=== PATIENT | female | born 1995 | race Caucasian/White ===

== ENCOUNTER 2019-05-28 11:43 | Inpatient (IN) ==
[~2019-05-28 11:43] MED LIST: *HR* Nalbuphine 10 MG/ML AMPUL IVP PRN; Famotidine 20 MG/2 ML VIAL IVP PRN; Lidocaine 1% 20 ML MDV INFILT PRN; Metoclopramide 10 MG/2 ML VIAL IVP PRN; Naloxone 0.4 MG/ML INJ IVP PRN; Ondansetron 4 MG/2 ML VIAL IVP PRN
[2019-05-28] MEDS ORDERED: Ringers Solution, Lactated 1,000 ML IVC SCH (11:45)
[2019-05-28 12:09] LABS: Eosinophils % 0.2 %; Hematocrit 38.3 % (35.3-44.9); Hemoglobin 12.7 g/dL (11.5-15.4); Immature Granulocytes % 0.9 % (0-4); Lymphocytes % 15.7 %; Mean Corpuscular HGB Conc 33.2 g/dL (31.6-35.5); Mean Corpuscular Hemoglobin 28.3 pg (28.0-33.3); Mean Corpuscular Volume 85.3 fL (83.0-100.0); Mean Platelet Volume 9.4 fL (9.4-12.4); Monocytes % 5.6 %; Platelet Count 245 K/mcL (140-400); Red Blood Count 4.49 M/mcL (3.82-4.97); Red Cell Distribution Width 13.7 % (11.5-14.5); Segmented Neutrophils % 77.4 %; White Blood Count 8.2 K/mcL (4.3-11.1)
[2019-05-28 12:10] LABS: Basophils % 0.2 %; Lymphocytes # 1.3 K/mcL (0.6-4.6); Monocytes # 0.5 K/mcL (0.0-1.3); Neutrophils # 6.3 K/mcL (1.6-8.9)
[2019-05-28 12:18] LABS: Amphetamine Screen,Urine Negative ng/mL (Cutoff=1000); Barbiturate Screen,Urine Negative ng/mL (Cutoff=200); Benzodiazepines Screen,Urine Negative ng/mL (Cutoff=200); Cannabinoid Screen,Urine Negative ng/mL (Cutoff = 50); Cocaine Screen,Urine Negative ng/mL (Cutoff= 300); Opiate Screen,Urine Negative ng/mL (Cutoff=300); Phencyclidine Screen,Urine Negative ng/mL (Cutoff=25)
--- NOTE | 2019-05-28 12:26 | OB/GYN History & Physical ---
Date of Encounter: 05/28/19 Time of Encounter: 12:17 Assessment and Plan (1) 40 weeks gestation of Current visit: Yes Status: Acute Admit to L&D for observation of labor Expectant management Labs-CBC and type and screen Intermittent auscultation Pain management plan is natural childbirth Anticipate vaginal delivery Dr. Preston is the OB on-call and is available as needed (2) Intrauterine Current visit: Yes Status: Acute (3) Active labor at term Current visit: Yes Status: Acute (4) Type O blood, Rh negative Current visit: Yes Status: Acute Cord blood will be collected at time of delivery (5) Intact amniotic membranes during in third trimester Current visit: Yes Status: Acute History of Present Illness Chief complaint: contractions HPI: Ms. Parson is a 23 year old female at 40 weeks 1 days gestation with an estimated date of 05/27/19 dated by LMP. She presents with complaint of contractions since 0 400 this morning increasing in strength and fr equency. She endorses good movement and denies leakage of fluid and vaginal bleeding. Her has been uncomplicated. She is been followed by the midwives throughout her . records are available electronically and have been reviewed. Labs: O- GBS- HIV- Hep B- T. Palladium- GC/CL- Rubella immune Varicella immune Obstetrical History - Pregnancies : 1 Para: 0 Term: 0 : 0 Ab's: 0 Livin Review of System OB All systems PM: reviewed and no additional remarkable complaints except as stated Exam - Constitutional Constitutional: well developed, well nourished, average body habitus, mild distress - HEENT HEENT: PERRL, Normocephaly, Mucus Membranes Moist - Neck Neck exam: full ROM - Lungs Respiratory exam: CTAB - Cardiovascular Cardiovascular exam: RRR, +S1, +S2 - Breasts Breast: bilateral: normal - Abdomen Abdomen: Present: bowel sounds normal, gravid, non tender - Extremities Extremities exam: full ROM, normal capillary refill, normal inspection, radial pulses palpable and symmetrical Deep Tendon Reflex Grade: 2+ Normal - Vulva Vulva: bilateral: normal - Vagina Vagina: Present: normal moisture - Cervix Dilation: 4 (per RN) Effacement: 100 Station: -2 - Uterus Uterus exam: Present: enlarged, normal contour - Adnexa Adnexa: bilateral: normal - Anus/Rectum Anus/Rectum: Present: normal perianal skin Results Result Diagrams: 05/28/19 11:56 All other labs normal. - VTE Reasons for not Prescribing Prophylaxis: Treatment not Indicated - Low risk for VTE
--- NOTE | 2019-05-28 14:43 | OB Labor Progress Note ---
Date of Encounter: 05/28/19 Time of Encounter: 14:41 Labor Progress Note - Subjective Subjective: Patient reports lots of pressure with contractions but is managing them well. Requesting Nubain for pain relief - Cervix Cervix: 6-7/100/0 - Heart Tones Heart Tones: Intermittent auscultation with heart tones reassuring. Range from 125-145 bpm - [place]: Ms Sql Server Developer at bedside for labor support. Contractions timed at 3 minutes apart and palpated strong - Interventions Interventions: SVE Nubain - Plan Physician notified: No Plan: Continue expectant management Nubain for pain relief Continuous electronic monitoring Anticipate vaginal delivery
[2019-05-28] MEDS ORDERED: Oxytocin 20 units/ LR 1000 mL 20 UNIT/1,000 ML BAG IVC ONE (15:06)
[2019-05-28] MEDS ORDERED: Methylergonovine 0.2 MG/ML AMPUL IM ONE (17:34)
--- NOTE | 2019-05-28 17:59 | OB/GYN Procedure Note ---
Delivery - Delivery Date: 05/28/19 Provider: China Kim Intrapartum events: none Delivery induction: none Delivery monitor: external FHT, external uterine Anesthesia: local (10mL for repair) Quantitated Blood Loss: 250 - Infant (s) A Infant Delivery Date: 05/28/19 Delivery Time: 17:10 Presentation: vertex Position: JUAN CARLOS Route of delivery: Gender: Male Viability: Viable Pounds: 7 Ounces: 11 Weight Gram: 3.51 kg at 1 minute: 8 at 5 mins: 9 Shoulder Dystocia: not encountered Specimens collected: cord blood Placenta: spontaneous Cord: nuchal cord (loose), 3 umbilical vessels, delivered through nuchal - Repair Episiotomy: none Laceration Description: Perineal - 2nd Degree (repaired) - Complications Delivery complications: uterine atony (methergine given IM) Delivery comments: This is a 23 year old G 1 now P 1001 who was admitted for spontaneous labor. She progressed spontaneously to the second stage of labor. She pushed for about an hour and 10 minutes. She delivered a viable, male , Tani RANGEL", over a second-degree laceration. A nuchal cord was identified. The cord was loose and may have been reduced however the infant's body was delivering so the cord was delivered through. A shoulder dystocia was not encountered. The infant was placed on the maternal abdomen and allowed to transition spontaneously. The cord was double clamped by [employer] after pulsations ceased and cut by [employer]. scores were 8 at 1 minute and 9 at 5 minutes. The infant weighed 7 lbs. 11 oz. (3510 g). The placented delivered spontaneously, intact ([place]) with a 3-ves stephen cord. Inspection revealed a second-degree laceration. The laceration was repaired with a 3-0 Vicryl suture and was hemostatic. The uterus was atonic with active bleeding. Methergine was administered per RN and Dr. Preston was called to bedside. However upon his arrival bleeding had slowed. EBL was 250 mL. Placenta and umbilical artery blood gases were not sent. There were no complications during the procedure. Mom and baby are skin to skin following delivery. - Disposition Mom disposition: stable in LDR disposition: stable in LDR
[2019-05-28] MEDS ORDERED: Oxytocin 20 units/ LR 1000 mL 20 UNIT/1,000 ML BAG IVC SCH (20:27)
[2019-05-28] MEDS ORDERED: Acetaminophen 325 MG TABLET PO PRN (20:27)
[2019-05-28] MEDS ORDERED: Rho Immune Globulin 1,500 UNIT SYRINGE IM PRN (20:27)
[2019-05-28] MEDS: Ibuprofen 600 MG TABLET PO PRN (20:48)
[2019-05-28] MEDS ORDERED: Benzocaine/Menthol 56 GM AEROSOL SPRAY TP PRN (21:49)
[2019-05-29] MEDS: Ibuprofen 600 MG TABLET PO PRN (07:57)
--- NOTE | 2019-05-29 08:20 | Discharge Summary ---
Date of Encounter: 05/29/19 Time of Encounter: 08:16 - Discharge Diagnosis (1) Vaginal delivery Priority: Primary Status: Acute Comments: S/P Vaginal delivery Day 1 Pain is well controlled Lochia is light and without clots VSS Tolerating regular diet and passing flatus Voiding without difficulty Discharge home today POC per consult with Dr Menchaca - Discharge Medications Prescriptions: New Breast Pump [BREAST PUMP] 1 each .ROUTE AD #1 each Docusate [Colace] 100 mg PO BID PRN #30 capsule PRN Reason: Consitipation Benzocaine/Menthol Dolphin [Dermoplast Dolphin] 1 appl TP QID PRN aerosol PRN Reason: See Comments Ibuprofen [Motrin] 600 mg PO Q6HR PRN #30 tablet PRN Reason: Cramping Acetaminophen [Tylenol] 650 mg PO Q6HR PRN tablet PRN Reason: Mild Pain Continued Pnv No.95/Ferrous Fum/Folic AC [ Caplet] 1 each PO DAILY Home Medications: Pnv No.95/Ferrous Fum/Folic AC [ Caplet] 1 each PO DAILY 05/28/19 [History] Acetaminophen [Tylenol] 650 mg PO Q6HR PRN tablet 05/29/19 [Rx] Benzocaine/Menthol Dolphin [Dermoplast Dolphin] 1 appl TP QID PRN aerosol 05/29/19 [Rx] Breast Pump [BREAST PUMP] 1 each .ROUTE AD #1 each 05/29/19 [Rx] Docusate [Colace] 100 mg PO BID PRN #30 capsule 05/29/19 [Rx] Ibuprofen [Motrin] 600 mg PO Q6HR PRN #30 tablet 05/29/19 [Rx] Allergies/Adverse Reactions: Allergy/AdvReac Type Severity Reaction Status Date / Time No Known Allergies Allergy Verified 05/28/19 12:35 Data Procedures and tests throughout hospitalization: Laboratory Tests 05/28/19 05/28/19 11:56 11:56 WBC 8.2 RBC 4.49 Hgb 12.7 Hct 38.3 MCV 85.3 MCH 28.3 MCHC 33.2 RDW 13.7 Plt Count 245 MPV 9.4 Immature Gran % 0.9 Seg Neutrophils % 77.4 Lymphocytes % 15.7 Monocytes % 5.6 Eosinophils % 0.2 Basophils % 0.2 Neutrophils # 6.3 Lymphocytes # 1.3 Monocytes # 0.5 Eosinophils # 0.0 Basophils # 0.0 Urine Opiates Screen Negative Ur Buprenorphine Scrn Negative Ur Barbiturates Screen Negative Ur Phencyclidine Scrn Negative Ur Amphetamines Screen Negative U Benzodiazepines Scrn Negative Urine Cocaine Screen Negative U Marijuana (THC) Screen Negative Ur Drug Screen Interp See Below Labs on day of discharge: Labs from last 24 hours 05/28/19 05/28/19 11:56 11:56 WBC 8.2 RBC 4.49 Hgb 12.7 Hct 38.3 MCV 85.3 MCH 28.3 MCHC 33.2 RDW 13.7 Plt Count 245 MPV 9.4 Immature Gran % 0.9 Seg Neutrophils % 77.4 Lymphocytes % 15.7 Monocytes % 5.6 Eosinophils % 0.2 Basophils % 0.2 Neutrophils # 6.3 Lymphocytes # 1.3 Monocytes # 0.5 Eosinophils # 0.0 Basophils # 0.0 Urine Opiates Screen Negative Ur Buprenorphine Scrn Negative Ur Barbiturates Screen Negative Ur Phencyclidine Scrn Negative Ur Amphetamines Screen Negative U Benzodiazepines Scrn Negative Urine Cocaine Screen Negative U Marijuana (THC) Screen Negative Ur Drug Screen Interp See Below Date of admission: 05/28/19 11:43 Consults: 05/28/19 20:27 Consult to Sleeping Car Conductor [CONS] Routine Comment: Vaginal delivery, consult needed Discharging clinician: China Mackay Anticipated date of discharge: 05/29/19 - Patient Status Disposition: Home, Self-Care Condition: Good Functional capacity at discharge: independent ambulation Overall status at discharge: patient is progressing back to baseline - Discharge Instructions Follow Up With: China Kim [Advanced Practice Nurse] - - Diet and Activity Activity: increase activity as tolerated Diet: regular diet Hospital Course Reason for admission: active labor, IUP at term Delivery: Episiotomy: none Laceration: 2nd degree Other procedures: none complications: none Discharge diagnosis: IUP at term delivered baby: male Time Attestation: Total time spent providing and/or coordinating discharge services: Time Spent: Less than 30 minutes Exam - Constitutional Vitals: Temp Pulse Resp BP Pulse Ox 98.2 F 75 14 113/65 99 05/29/19 03:27 05/29/19 03:27 05/29/19 03:27 05/29/19 03:27 05/29/19 03:27 General appearance IM: cooperative, A&O X 3, pleasant - Respiratory Respiratory exam: Present: CTAB - Cardiovascular Cardiovascular exam IM: Present: RRR, +S1, +S2 - GI/Abdominal GI/Abdominal exam IM: normal bowel sounds - Rectal Rectal exam: deferred - Uterine Tone: Firm Uterus Position: At Umbilicus, Midline - Neurological Exam Neurological exam: alert, oriented X3, reflexes normal
[2019-05-29 08:42] VITALS: BP 114/76
[2019-05-29] MEDS ORDERED: Prenatal Vit/FA 1 EACH TABLET PO SCH (09:00)
== END 2019-05-29 16:58 | disposition home or self-care (01) | DRG 807 ==
LOC: 1NENULAB → 1NENUOBS 20:43
PROVIDERS: ADMIT Advanced Practice Midwife; ATTEND Advanced Practice Midwife

== ENCOUNTER 2021-12-18 09:15 | Observation (INO) ==
[2021-12-18 09:54] LABS: Basophils % 0.2 %; Eosinophils % 0.5 %; Hematocrit 36.6 % (35.3-44.9); Hemoglobin 12.4 g/dL (11.5-15.4); Immature Granulocytes % 1.3 % (0-4); Lymphocytes # 1.3 K/mcL (0.6-4.6); Lymphocytes % 22.6 %; Mean Corpuscular HGB Conc 33.9 g/dL (31.6-35.5); Mean Corpuscular Volume 88.4 fL (83.0-100.0); Mean Platelet Volume 9.1 fL (9.4-12.4); Monocytes # 0.3 K/mcL (0.0-1.3); Monocytes % 5.2 %; Neutrophils # 3.9 K/mcL (1.6-8.9); Platelet Count 205 K/mcL (140-400); Red Blood Count 4.14 M/mcL (3.82-4.97); Red Cell Distribution Width 13.1 % (11.5-14.5); Segmented Neutrophils % 70.2 %; White Blood Count 5.5 K/mcL (4.3-11.1)
[2021-12-18 10:02] LABS: Prothrombin Time 11.1 Seconds (9.4-12.1)
[2021-12-18] MEDS: Betamethasone Acet/SodPhos 30 MG/5 ML VIAL IM SCH (11:36)
[2021-12-19] MEDS: Betamethasone Acet/SodPhos 30 MG/5 ML VIAL IM SCH (11:20)
== END 2021-12-19 11:28 | disposition home or self-care (01) ==
LOC: 1NENULAB
PROVIDERS: ADMIT Advanced Practice Midwife; ATTEND Advanced Practice Midwife

== ENCOUNTER 2021-12-20 02:03 | Observation (INO) ==
[2021-12-20 02:57] LABS: Prothrombin Time 10.6 Seconds (9.4-12.1)
[2021-12-20 02:58] LABS: Activated Partial Thrombo Time 26.9 Seconds (26.0-36.0)
[2021-12-20 03:52] LABS: Basophils % 0.1 %; Hemoglobin 11.6 g/dL (11.5-15.4); Immature Granulocytes % 1.6 % (0-4); Lymphocytes % 10.8 %; Mean Corpuscular HGB Conc 34.1 g/dL (31.6-35.5); Mean Corpuscular Hemoglobin 29.5 pg (28.0-33.3); Mean Corpuscular Volume 86.5 fL (83.0-100.0); Mean Platelet Volume 9.2 fL (9.4-12.4); Monocytes # 0.3 K/mcL (0.0-1.3); Monocytes % 3.3 %; Neutrophils # 7.8 K/mcL (1.6-8.9); Platelet Count 220 K/mcL (140-400); Red Blood Count 3.93 M/mcL (3.82-4.97); Red Cell Distribution Width 13.2 % (11.5-14.5); Segmented Neutrophils % 84.2 %
[2021-12-20 03:54] LABS: White Blood Count 9.3 K/mcL (4.3-11.1)
== END 2021-12-20 10:30 | disposition left against medical advice (07) ==
LOC: 1NENULAB
PROVIDERS: ADMIT Advanced Practice Midwife; ATTEND Advanced Practice Midwife

== ENCOUNTER → 2022-01-04 09:00 | Observation (INO) ==
[2022-01-03] MEDS: Ringers Solution, Lactated 1,000 ML IVC SCH (19:30)
[2022-01-03 23:04] LABS: Bacteria,Urine Few per hpf (None-Few); Bilirubin,Urine Negative (Negative); Blood,Urine Large (Negative); Clarity,Urine Clear (Clear); Color,Urine Colorless (Yellow); Glucose,Urine (UA) Normal (Normal); Ketones,Urine Negative (Negative); Leukocyte Esterase,Urine Small (Negative); Nitrite,Urine Negative (Negative); Protein,Urine Negative (Neg-Trace); RBC,Urine 0-3 per hpf (0-3); Specific Gravity,Urine 1.005 (1.010-1.025); Squamous Epithelial Cell,Urine Few per hpf (None-Few); Urobilinogen,Urine Normal (Normal); WBC,Urine 0-3 per hpf (0-3)
[2022-01-04] MEDS: Ringers Solution, Lactated 1,000 ML IVC SCH (02:43)
[~2022-01-04 09:00] MED LIST changes: -*HR* Nalbuphine 10 MG/ML AMPUL IVP PRN; -Famotidine 20 MG/2 ML VIAL IVP PRN; -Lidocaine 1% 20 ML MDV INFILT PRN; -Metoclopramide 10 MG/2 ML VIAL IVP PRN; -Naloxone 0.4 MG/ML INJ IVP PRN; -Ondansetron 4 MG/2 ML VIAL IVP PRN; +Ringers Solution, Lactated 1,000 ML IVC ONE; +Ringers Solution, Lactated 1,000 ML ONE
== END | disposition home or self-care (01) ==
LOC: 1NENULAB
PROVIDERS: ADMIT Registered Nurse; ATTEND Registered Nurse

== ENCOUNTER 2022-01-07 22:04 | Inpatient (IN) ==
[2022-01-07 20:33] LABS: Bacteria,Urine Few per hpf (None-Few); Bilirubin,Urine Negative (Negative); Blood,Urine Large (Negative); Clarity,Urine Clear (Clear); Color,Urine Colorless (Yellow); Glucose,Urine (UA) Normal (Normal); Ketones,Urine Negative (Negative); Leukocyte Esterase,Urine Negative (Negative); Nitrite,Urine Negative (Negative); Protein,Urine Trace mg/dL (Neg-Trace); RBC,Urine 30-50 per hpf (0-3); Specific Gravity,Urine 1.005 (1.010-1.025); Squamous Epithelial Cell,Urine Few per hpf (None-Few); Urobilinogen,Urine Normal (Normal); WBC,Urine 0-3 per hpf (0-3)
[2022-01-07 22:02] LABS: Basophils % 0.1 %; Eosinophils % 0.5 %; Hematocrit 37.8 % (35.3-44.9); Immature Granulocytes % 0.7 % (0-4); Lymphocytes # 1.6 K/mcL (0.6-4.6); Lymphocytes % 21.3 %; Mean Corpuscular HGB Conc 34.4 g/dL (31.6-35.5); Mean Corpuscular Volume 87.3 fL (83.0-100.0); Mean Platelet Volume 9.1 fL (9.4-12.4); Monocytes # 0.4 K/mcL (0.0-1.3); Monocytes % 5.7 %; Neutrophils # 5.2 K/mcL (1.6-8.9); Platelet Count 200 K/mcL (140-400); Red Blood Count 4.33 M/mcL (3.82-4.97); Red Cell Distribution Width 13.3 % (11.5-14.5); Segmented Neutrophils % 71.7 %; White Blood Count 7.3 K/mcL (4.3-11.1)
[~2022-01-07 22:04] MED LIST changes: +*HR* Nalbuphine 10 MG/ML AMPUL IV PRN; +Azithromycin 500 MG in 0.9 % Sodium Chloride 250 ML IVPB PRN; +Famotidine 20 MG/2 ML VIAL IVP PRN; +Metoclopramide 10 MG/2 ML VIAL IVP PRN; +Naloxone 0.4 MG/ML INJ IVP PRN; +Ondansetron 4 MG/2 ML VIAL IVP PRN; +Oxytocin 20 units/ LR 1000 mL 20 UNIT/1,000 ML BAG IVC SCH; +Penicillin G Potassium 5,000,000 UNIT in 0.9 % Sodium Chloride Mini Bag 100 ML IVPB ONE; -Ringers Solution, Lactated 1,000 ML IVC ONE
[2022-01-07] MEDS ORDERED: Ringers Solution, Lactated 1,000 ML IVC SCH (22:15)
[2022-01-07] MEDS ORDERED: EPHEDrine 50 MG/ML VIAL IVP PRN (22:22)
[2022-01-07] MEDS ORDERED: Epidural Premix (fent/bupiv) 110 ML EP SCH (22:30)
[2022-01-07 22:37] LABS: Influenza A PCR Negative (Negative); Influenza B PCR Negative (Negative); Resp. Syncytial Virus PCR Negative (Negative)
[2022-01-07 22:38] LABS: SARS-CoV-2 by PCR (In House) Negative (Negative)
[2022-01-07 22:53] LABS: Amphetamine Screen,Urine Negative ng/mL (Cutoff=1000); Barbiturate Screen,Urine Negative ng/mL (Cutoff=200); Benzodiazepines Screen,Urine Negative ng/mL (Cutoff=200); Cannabinoid Screen,Urine Negative ng/mL (Cutoff = 50); Cocaine Screen,Urine Negative ng/mL (Cutoff= 300); Opiate Screen,Urine Negative ng/mL (Cutoff=300); Phencyclidine Screen,Urine Negative ng/mL (Cutoff=25)
[2022-01-08] MEDS ORDERED: Penicillin G Potassium 2,500,000 UNIT/105 ML MLS IVPB SCH (02:00)
[2022-01-08] MEDS ORDERED: *HR* Succinylcholine 200 MG/10 ML VIAL IVP ONE (06:45)
[2022-01-08] MEDS ORDERED: *HR* Propofol 200 MG/20 ML VIAL IVP ONE (06:45)
[2022-01-08] MEDS ORDERED: Ringers Solution, Lactated 1,000 ML ONE (06:51)
[2022-01-08] MEDS ORDERED: *HR* Rocuronium Bromide 50 MG/5 ML VIAL ONE (06:57)
[2022-01-08] MEDS ORDERED: Acetaminophen IV 1,000 MG/100 ML BAG IVPB ONE (07:00)
[2022-01-08] MEDS ORDERED: Ketorolac 30 MG/ML VIAL ONE (07:11)
[2022-01-08] MEDS ORDERED: *HR* HYDROmorphone PF 0.5 MG/0.5 ML SYRINGE IVP PRN (07:30)
[2022-01-08] MEDS ORDERED: Promethazine 6.25 MG in Water for inj. (sterile) 20 ML IVPB PRN (07:30)
[2022-01-08] MEDS ORDERED: Neostigmine Methylsulfate 3 MG/3 ML SYRINGE ONE (07:38)
[2022-01-08] MEDS ORDERED: *HR* HYDROMORPHONE 2 MG/ML VIAL ONE (07:42)
[2022-01-08] MEDS ORDERED: Ondansetron 4 MG/2 ML VIAL IVP PRN (11:48)
[2022-01-08] MEDS ORDERED: Oxytocin 20 units/ LR 1000 mL 20 UNIT/1,000 ML BAG IVC SCH (11:48)
[2022-01-08] MEDS ORDERED: Rho Immune Globulin 1,500 UNIT SYRINGE IM ONE (11:48)
[2022-01-08] MEDS ORDERED: Metoclopramide 10 MG/2 ML VIAL IVP PRN (11:48)
[2022-01-08] MEDS: Acetaminophen 325 MG TABLET PO SCH ×2 (12:00→18:33)
[2022-01-08] MEDS: cephALEXin 500 MG CAPSULE PO SCH ×3 (12:00→21:18)
[2022-01-08] MEDS: Simethicone 80 MG TAB.CHEW PO SCH ×3 (12:00→21:18)
[2022-01-08] MEDS: metroNIDAZOLE 500 MG TABLET PO SCH ×3 (12:00→21:18)
[2022-01-08] MEDS: Prenatal Vit/FA 1 EACH TABLET PO SCH (12:00)
[2022-01-08] MEDS ORDERED: Ketorolac 30 MG/ML VIAL IVP ONE (13:30)
[2022-01-08 16:40] LABS: Hematocrit 29.9 % (35.3-44.9); Immature Granulocytes % 0.7 % (0-4); Lymphocytes # 0.7 K/mcL (0.6-4.6); Lymphocytes % 6.5 %; Mean Corpuscular HGB Conc 34.1 g/dL (31.6-35.5); Mean Corpuscular Hemoglobin 29.7 pg (28.0-33.3); Mean Corpuscular Volume 86.9 fL (83.0-100.0); Mean Platelet Volume 9.1 fL (9.4-12.4); Monocytes # 0.3 K/mcL (0.0-1.3); Monocytes % 2.5 %; Neutrophils # 9.6 K/mcL (1.6-8.9); Platelet Count 179 K/mcL (140-400); Red Blood Count 3.44 M/mcL (3.82-4.97); Red Cell Distribution Width 13.2 % (11.5-14.5); Segmented Neutrophils % 90.3 %; White Blood Count 10.6 K/mcL (4.3-11.1)
[2022-01-08 16:41] LABS: Hemoglobin 10.2 g/dL (11.5-15.4)
[2022-01-08] MEDS: Ibuprofen 600 MG TABLET PO SCH (18:32)
[2022-01-08] MEDS: *HR* OxyCODONE Immed Rel 5 MG TABLET PO PRN (21:18)
[2022-01-08] MEDS: Lanolin 7 G OINT...G. TP PRN (21:18)
[2022-01-09] MEDS: Acetaminophen 325 MG TABLET PO SCH ×4 (00:36→21:17)
[2022-01-09] MEDS: Ibuprofen 600 MG TABLET PO SCH ×4 (00:36→21:17)
[2022-01-09] MEDS: *HR* OxyCODONE Immed Rel 5 MG TABLET PO PRN (04:37)
[2022-01-09 05:19] LABS: Basophils % 0.2 %; Eosinophils % 0.1 %; Hematocrit 28.1 % (35.3-44.9); Hemoglobin 9.4 g/dL (11.5-15.4); Lymphocytes # 1.5 K/mcL (0.6-4.6); Lymphocytes % 18.9 %; Mean Corpuscular HGB Conc 33.5 g/dL (31.6-35.5); Mean Corpuscular Hemoglobin 29.7 pg (28.0-33.3); Mean Corpuscular Volume 88.6 fL (83.0-100.0); Mean Platelet Volume 9.3 fL (9.4-12.4); Monocytes # 0.4 K/mcL (0.0-1.3); Monocytes % 5.4 %; Neutrophils # 6.1 K/mcL (1.6-8.9); Platelet Count 164 K/mcL (140-400); Red Blood Count 3.17 M/mcL (3.82-4.97); Red Cell Distribution Width 13.2 % (11.5-14.5); Segmented Neutrophils % 74.4 %; White Blood Count 8.2 K/mcL (4.3-11.1)
[2022-01-09] MEDS: Simethicone 80 MG TAB.CHEW PO SCH ×3 (08:51→21:16)
[2022-01-09] MEDS: Prenatal Vit/FA 1 EACH TABLET PO SCH (08:51)
[2022-01-09] MEDS: metroNIDAZOLE 500 MG TABLET PO SCH ×3 (08:51→21:17)
[2022-01-09] MEDS: cephALEXin 500 MG CAPSULE PO SCH ×3 (08:52→21:17)
[2022-01-09 20:08] VITALS: PULSE 84; O2SAT 100
[2022-01-10] MEDS: Ibuprofen 600 MG TABLET PO SCH ×2 (04:51→10:46)
[2022-01-10] MEDS: Acetaminophen 325 MG TABLET PO SCH ×2 (04:51→10:46)
[2022-01-10 07:33] VITALS: BP 97/62; TEMP 98.3
[2022-01-10] MEDS: Lanolin 7 G OINT...G. TP PRN (09:45)
[2022-01-10] MEDS: Prenatal Vit/FA 1 EACH TABLET PO SCH (09:45)
== END 2022-01-10 14:00 | disposition home or self-care (01) | DRG 786 ==
LOC: 1NENULAB → 1NENUOBS 01-08 11:25
PROVIDERS: ADMIT Advanced Practice Midwife; ATTEND Advanced Practice Midwife